=== PATIENT | male | born 1995 | race Caucasian/White ===

== ENCOUNTER 2018-12-16 16:31 | Emergency (ER) | payer BC ==
[~2018-12-16] VITALS: Ht 182.9 cm; Wt 131.1 kg
[2018-12-16 16:42] VITALS: Ht 182.9 cm; Wt 131.1 kg
[2018-12-16 17:25] LABS: BASOPHIL % 0.3 % (0-2); PLATELET COUNT 223 x10^3mcL (130-400)
[2018-12-16 17:34] LABS: CALCIUM 10.2 mg/dL (8.5-10.1); CARBON DIOXIDE 24.2 mmol/L (21-32); CHLORIDE SERUM 97 mmol/L (98-107); CREATININE SERUM 0.8 mg/dL (0.7-1.3); GFR1 > 60 mL/min; GLUCOSE SERUM 363 mg/dL (74-106); SODIUM SERUM 136 mmol/L (136-145)
[2018-12-16 17:39] LABS: ALBUMIN 4.2 g/dL (3.4-5.0); ALKALINE PHOSPHATASE 92 U/L (46-116); ALT/SGPT 276 U/L (16-63); AST/SGOT 74 U/L (15-37); BILIRUBIN TOTAL 1.3 mg/dL (0.20-1.00); LIPASE 78 IU/L (73-393); TOTAL PROTEIN, SERUM 7.9 g/dL (6.4-8.2)
[2018-12-16 19:21] VITALS: BP 128/57
== END 2018-12-16 19:21 | disposition home or self-care (01) ==
LOC: ED 16:31
PROVIDERS: Emergency Medicine
DX: K52.9 Noninfective gastroenteritis and colitis, unspecified (principal); E86.0 Dehydration; E11.9 Type 2 diabetes mellitus without complications
CPT/HCPCS: J2405; J2765; J7030

== ENCOUNTER 2018-12-30 18:05 | Emergency (ER) | payer BC ==
[~2018-12-30] VITALS: Ht 182.9 cm; Wt 136.1 kg
[2018-12-30 18:10] VITALS: BP 145/82; Ht 182.9 cm; Wt 136.1 kg
[2018-12-30 18:51] LABS: microscopic required? YES; urine erythrocyte TRACE (NEGATIVE)
[2019-01-02 04:06] LABS: RAPID PLASMA REAGIN Non Reactive (Non Reactive)
== END 2018-12-30 20:06 | disposition home or self-care (01) ==
LOC: ED 18:05
PROVIDERS: Emergency Medicine
DX: N34.1 Nonspecific urethritis (principal); E11.9 Type 2 diabetes mellitus without complications
CPT/HCPCS: 87491; 87591; J0696

== ENCOUNTER 2019-11-11 19:27 | Emergency (ER) | payer MEDICAID ==
[~2019-11-11] VITALS: Ht 182.9 cm; Wt 109.3 kg
[2019-11-11 19:44] VITALS: Ht 182.9 cm; Wt 109.3 kg
[2019-11-11 21:02] VITALS: BP 143/77
== END 2019-11-11 21:02 | disposition home or self-care (01) ==
LOC: ED 19:27
DX: N39.0 Urinary tract infection, site not specified (principal); N34.2 Other urethritis; E11.9 Type 2 diabetes mellitus without complications
CPT/HCPCS: 87491; 87591; J0696

== ENCOUNTER 2019-12-31 13:54 | Emergency (ER) | payer OTHER ==
[~2019-12-31] VITALS: Ht 182.9 cm; Wt 104.3 kg
[2019-12-31 14:01] VITALS: Ht 182.9 cm; Wt 104.3 kg
[2019-12-31 16:35] VITALS: BP 139/53
== END 2019-12-31 16:15 | disposition home or self-care (01) ==
LOC: ED 13:54
DX: S01.511A Laceration without foreign body of lip, initial encounter (principal); S43.402A Unspecified sprain of left shoulder joint, initial encounter; G89.29 Other chronic pain; M54.5 Low back pain; Y04.8XXA Assault by other bodily force, initial encounter; Y93.89 Activity, other specified; Y92.89 Other specified places as the place of occurrence of the external cause; Y99.8 Other external cause status
CPT/HCPCS: J2001; Q0092